=== PATIENT | female | born 1975 | race American Indian/Alaskan Native ===

== ENCOUNTER 2016-09-06 18:22 | Emergency (ER) | payer OTHER ==
[2016-09-06 19:27] VITALS: BP 147/95
[2016-09-06] MEDS ORDERED: XYLOCAINE 1% MPF 5 mL INFILTRATI ONE (19:46)
[2016-09-06] MEDS ORDERED: MOTRIN PO ONE (19:46)
--- NOTE | 2016-09-06 20:47 | Emergency Department Report ---
Entered by DEMETRIA HUNG, acting as scribe for JW HOGAN NP. - General Chief complaint: Wound/Laceration Stated complaint: RT HAND MIDDLE FINGER INFECTION/SWELLING Time Seen by Provider: 09/06/16 19:37 Source: patient Mode of arrival: Ambulatory Limitations: No Limitations - History of Present Illness Initial comments: 40 y/o female presents to the ED c/o paronychia to right middle finger x 2 days. Associated symptoms include pain and swelling but she denies fever, chills , nausea and vomiting. Pain is described as 8/10 on a severity scale. Patient states she was seen at urgent care 2 days ago and is on Augmentin but symptoms are worse. No alleviating or aggravating factors. Allergic to acetaminophen, erythromycin base and oxycodone HCL. LMP: 08/30/16. complaint: other (paronychia to right middle finger) Onset/Timin -: days(s) Severity: severe Severity scale (0 -10): 8 Quality: constant Consistency: constant Improves with: none Worsens with: none Context: none Associated symptoms: other (pain, swelling, denies: fever, chills, nausea and vomiting) Treatments Prior to Arrival: none - Related Data Home Medications Medication Instructions Recorded Confirmed Last Taken Augmentin 875MG TAB 1 tab PO BID 09/06/16 09/06/16 Unknown Previous Rx's Medication Instructions Recorded Last Taken Type traMADol [Ultram 50 MG tab] 50 mg PO Q6HR PRN #15 tablet 09/06/16 Unknown Rx Allergies Allergy/AdvReac Type Severity Reaction Status Date / Time acetaminophen [From Percocet] Allergy Anaphylaxis Verified 09/06/16 18:58 erythromycin base Allergy Anaphylaxis Verified 09/06/16 18:58 oxycodone HCl [From Percocet] Allergy Anaphylaxis Verified 09/06/16 18:58 Abscess Boil HPI - HPI Chief Complaint: Wound/Laceration Stated Complaint: RT HAND MIDDLE FINGER INFECTION/SWELLING Time Seen by Provider: 09/06/16 19:37 Home Medications: Home Medications Medication Instructions Recorded Confirmed Last Taken Augmentin 875MG TAB 1 tab PO BID 09/06/16 09/06/16 Unknown Previous Rx's Medication Instructions Recorded Last Taken Type traMADol [Ultram 50 MG tab] 50 mg PO Q6HR PRN #15 tablet 09/06/16 Unknown Rx Allergies/Adverse Reactions: Allergies Allergy/AdvReac Type Severity Reaction Status Date / Time acetaminophen [From Percocet] Allergy Anaphylaxis Verified 09/06/16 18:58 erythromycin base Allergy Anaphylaxis Verified 09/06/16 18:58 oxycodone HCl [From Percocet] Allergy Anaphylaxis Verified 09/06/16 18:58 ED Review of Systems Comment: All other systems reviewed and negative Constitutional: denies: chills, fever Gastrointestinal: denies: nausea, vomiting Skin: other (pain, swelling, paronychia to right middle finger) ED Past Medical Hx - Past Medical History Previous Medical History?: No Additional medical history: Obesity - Surgical History Past Surgical History?: Yes Additional Surgical History: X 2, D&C, - Social History Smoking Status: Never Smoker Substance Use Type: None - Medications Home Medications: Home Medications Medication Instructions Recorded Confirmed Last Taken Type Augmentin 875MG TAB 1 tab PO BID 09/06/16 09/06/16 Unknown History traMADol [Ultram 50 MG tab] 50 mg PO Q6HR PRN #15 tablet 09/06/16 Unknown Rx ED Physical Exam - General Limitations: No Limitations General appearance: alert, in no apparent distress - Head Head exam: Present: atraumatic, normocephalic, normal inspection - Eye Eye exam: Present: normal appearance, PERRL, EOMI Pupils: Present: normal accommodation - ENT ENT exam: Present: normal exam, normal orophraynx, mucous membranes moist, TM's normal bilaterally, normal external ear exam - Neck Neck exam: Present: normal inspection, full ROM. Absent: tenderness, meningismus, lymphadenopathy, thyromegaly - Respiratory Respiratory exam: Present: normal lung sounds bilaterally. Absent: respiratory distress, wheezes, rales, rhonchi, chest wall tenderness, accessory muscle use, decreased breath sounds - Cardiovascular Cardiovascular Exam: Present: regular rate, normal rhythm, normal heart sounds. Absent: bradycardia, tachycardia, irregular rhythm, systolic murmur, diastolic murmur, rubs, gallop - GI/Abdominal GI/Abdominal exam: Present: soft, normal bowel sounds. Absent: tenderness, guarding, rebound - Extremities Exam Extremities exam: Present: normal inspection, full ROM, normal capillary refill. Absent: tenderness, pedal edema, joint swelling, calf tenderness - Back Exam Back exam: Present: normal inspection, full ROM. Absent: tenderness, CVA tenderness (R), CVA tenderness (L), muscle spasm, paraspinal tenderness, vertebral tenderness, rash noted - Neurological Exam Neurological exam: Present: alert, oriented X3 - Psychiatric Psychiatric exam: Present: normal affect, normal mood - Skin Skin exam: Present: warm, dry, normal color, other (paronychia to right middle finger) ED Course Vital Signs 09/06/16 19:18 Temperature 99.1 F Pulse Rate 98 H Respiratory 18 Rate Blood Pressure 147/95 Blood Pressure 147/95 [Left] O2 Sat by Pulse 99 Oximetry - I & D Right Dorsal Finger Type of Procedure: Simple Site: paronychia to right middle finger Blade Size: 11 I & D Procedure: betadine prep, sterile drapes applied, sterile dressing applied , gauze wick placed Progress: right middle finger paronychia site cleaned with betadine solution , anesthesia with 1% lidocaine plain, 2ml, incision x 1 with 11 blade moderate purulent drainage, nail bed probed with sterile swab, irrigated with 10 cc ns pt bleeding controled 2x2 dressing applied pt tolerated procedure with minimal distress, pt given wound care instructions pt verbalized agreement and understanding with same. ED Medical Decision Making - Medical Decision Making pt is a 40 y/o aaf who presents for right middle finger paronychia , I&D of same at this time see procedure note, pt tolerated procedure with nad, pt given wound care instructions pt verbalized understanding and agreement with same, all bleeding in controlled, pt for dc to self, will continue augmentin po bid, tramadol for pain , pt will follow up with pcp in 3 days , finger check rom intact adduction abduction to confrontation pt with nad at this time. ED Disposition Clinical Impression: Paronychia of finger of right hand Disposition: DC-01 TO HOME OR SELFCARE Is pt being admited?: No Does the pt Need Aspirin: No Condition: Good Instructions: Paronychia (ED) Prescriptions: traMADol [Ultram 50 MG tab] 50 mg PO Q6HR PRN #15 tablet PRN Reason: Pain Referrals: PRIMARY CARE, [Primary Care Provider] - 3-5 Days Forms: Work/School Release Form(ED) Time of Disposition: 20:47 This documentation as recorded by the ABHILASH vazquez ELIZABETH,accurately reflects the service I personally performed and the decisions made by me, JW HOGAN NP.
== END 2016-09-06 22:53 | disposition home or self-care (01) ==
LOC: ED 18:22
DX: L03.011 Cellulitis of right finger (principal); Z88.1 Allergy status to other antibiotic agents; Z88.6 Allergy status to analgesic agent; Z88.8 Allergy status to other drugs, medicaments and biological substances